=== PATIENT | male | born 2000 | race Two or more races ===

== ENCOUNTER 2020-07-20 12:19 | Emergency (ER) | payer OTHER ==
[~2020-07-20] VITALS: Ht 180.3 cm; Wt 72.6 kg
[2020-07-20] MEDS ORDERED: DUI500 PO (16:10)
== END 2020-07-20 16:52 | disposition home or self-care (01) ==
LOC: ER 12:19
DX: S61.220A Laceration with foreign body of right index finger without damage to nail, initial encounter (principal); W45.8XXA Other foreign body or object entering through skin, initial encounter; Y93.89 Activity, other specified; Y92.69 Other specified industrial and construction area as the place of occurrence of the external cause; Y99.8 Other external cause status